=== PATIENT | female | born 1960 | race Caucasian/White ===

== ENCOUNTER → 2021-01-22 12:24 | Outpatient (BNVA) | payer OTHER, SELFPAY | PROVIDERS: Family Provider Nurse Practitioner; PCP Nurse Practitioner; Visit Provider Nurse Practitioner | DX: M25.571 Pain in right ankle and joints of right foot (principal) | CPT/HCPCS: 73610 ==

== ENCOUNTER → 2023-11-20 14:17 | Outpatient (BNVA) | payer OTHER, SELFPAY | PROVIDERS: PCP Family Medicine; Visit Provider Family Medicine | DX: K21.9 Gastro-esophageal reflux disease without esophagitis (principal); Z12.11 Encounter for screening for malignant neoplasm of colon; K52.9 Noninfective gastroenteritis and colitis, unspecified; F32.9 Major depressive disorder, single episode, unspecified; Z13.220 Encounter for screening for lipoid disorders; Z13.6 Encounter for screening for cardiovascular disorders; Z13.1 Encounter for screening for diabetes mellitus; F33.41 Major depressive disorder, recurrent, in partial remission; Z76.89 Persons encountering health services in other specified circumstances | CPT/HCPCS: 80053; 80061; 84443; 85025 ==

== ENCOUNTER → 2024-08-27 13:26 | Outpatient (BNVA) | payer MEDICARE, SELFPAY | PROVIDERS: PCP Family Medicine; Referring Provider Family Medicine; Visit Provider Family Medicine | DX: M25.561 Pain in right knee (principal) | CPT/HCPCS: 73562 ==

== ENCOUNTER → 2025-02-09 08:28 | Outpatient (BNVA) | payer MEDICARE, SELFPAY | PROVIDERS: PCP Family Medicine; Visit Provider Family Medicine | DX: Z13.220 Encounter for screening for lipoid disorders (principal); Z13.6 Encounter for screening for cardiovascular disorders; Z13.1 Encounter for screening for diabetes mellitus | CPT/HCPCS: 80053; 80061 ==

== ENCOUNTER → 2025-04-12 13:21 | Outpatient (BNVA) | payer MEDICARE, SELFPAY | PROVIDERS: PCP Family Medicine; Visit Provider Specialist | DX: M25.561 Pain in right knee (principal) | CPT/HCPCS: 73560; 73565; 99204 ==

== ENCOUNTER 2025-04-29 09:15 | Outpatient (CLI) | payer MEDICARE, SELFPAY ==
--- NOTE | 2025-04-29 09:30 | MR_ITS ---
WS: [id number] MRI RIGHT KNEE NONCONTRAST TECHNIQUE: Axial PD, coronal PD fat sat, coronal PD, sagittal PD, and sagittal PD fat-sat images obtained. CLINICAL INFORMATION: pain COMPARISON: None. FINDINGS: Distal quadriceps and patella tendons are intact. Mucoid degeneration of the ACL with increased T1 and T2 signal normality appears intact. Normal PCL. Lobulated popliteal cyst measuring 4.1 x 1.5 cm. 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 Hypertrophic patella. Moderate suprapatellar effusion. Normal medial and lateral patellar retinaculum. Grade III chondromalacia patella. No subchondral edema. Chronic degeneration and thinning of the medial and lateral meniscus. Chronic appearing increased T2 signal abnormality involving the anterior horn lateral meniscus. Mild peripheral extrusion of the medial and lateral meniscus. Grade 3-4 chondromalacia in both the medial and lateral joint compartments. Normal lateral collateral ligament. Normal medial collateral ligament. MR/MR knee RT wo con* [id number] IMPRESSION: 1. 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 2. Mucoid degeneration of the ACL with T1 and T2 signal abnormality with diffu se thickening. PCL appears intact. 3. Chronic thinning of the medial and lateral meniscus. Chronic appearing tear or advanced intrasubstance degeneration involving the anterior horn lateral me niscus with T2 signal abnormality. 4. Lobulated popliteal cyst measuring 4.1 x 1.5 cm. 5. Grade III-IV chondromalacia medial and lateral joint compartments. 6. Moderate suprapatellar effusion. Outbridge grading: grade IV: full-thickness cartilage loss with underlying bone reactive changes
== END 2025-04-29 09:16 | disposition home or self-care (01) ==
LOC: RAD 09:17
PROVIDERS: PCP Family Medicine; Visit Provider Specialist
DX: M13.861 Other specified arthritis, right knee (principal); M94.261 Chondromalacia, right knee; M71.21 Synovial cyst of popliteal space [Baker], right knee
CPT/HCPCS: 73721